=== PATIENT | female | born 1985 | race Caucasian/White ===

== ENCOUNTER 2018-04-20 13:39 | Emergency (ER) | payer MEDICAID ==
[~2018-04-20] VITALS: Ht 165.1 cm; Wt 72.6 kg
[2018-04-20 14:22] VITALS: BP 114/70
--- NOTE | 2018-04-20 14:30 | NUR ---
PT. CAME INTO THE ED DUE TO HEAVYNESS IN EYES AND LIGHT SENSITIVITY X 7DAYS AND BRYANT X 2 DAYS. PT. STATES " I FEEL REALLY DRY MY EYES AND THE LIGHTS HURT, I STARTED WITH A HEADACHEABOUT 2 DAYS AGO SO I DECIDED TO COME IN". PT. IS AAOX4, DENIES FEVER, DENIES N/V/D, DENIES SOB, DENIES CHEST PAIN. RR EVEN AND UNLABORED. DENIES ANY FALLS. PUPILS EQUAL ROUND AND REACTIVE TO LIGHT 3MM BILATERALLY. ER MD NOTIFIED. WILL CONTINUE TO MONITOR.
[2018-04-20 15:30] VITALS: BP 114/70
--- NOTE | 2018-04-20 15:30 | NUR ---
Patient discharged with v/s stable. Written and verbal after care instructions given and explained. Patient alert, oriented and verbalized understanding of instructions. Ambulatory with steady gait. All questions addressed prior to discharge. ID band removed. Patient advised to follow up with PMD. Rx of PREDNISONE, VOLTAREN, MOTRIN 800MG given. Patient educated on indication of medication including possible reaction and side effects. Opportunity to ask questions provided and answered.
== END 2018-04-20 15:30 | disposition home or self-care (01) ==
LOC: MED 13:39
DX: H20.9 Unspecified iridocyclitis (principal); G43.909 Migraine, unspecified, not intractable, without status migrainosus; Z91.041 Radiographic dye allergy status
CPT/HCPCS: 81025; 99283

== ENCOUNTER 2018-06-08 07:43 | Emergency (ER) | payer MEDICAID ==
[~2018-06-08] VITALS: Ht 165.1 cm; Wt 72.6 kg
[2018-06-08 07:52] VITALS: BP 110/59
--- NOTE | 2018-06-08 07:56 | NUR ---
PT AMBULATED TO ER BED 01
--- NOTE | 2018-06-08 08:00 | NUR ---
33/F PRESENT TO ER C/O ABDOMINAL CRAMPING x 3 DAYS. PT HAS NAUSEA AND VOMITING BUT DENIES DIARRHEA OR CONSTIPATION. PT DENIES INJURY OR TRAUMA. LMP: 04/30/2018. PT STATED 5 WKS.HX: ANEMIA.MEDS: IRON AND MOTRIN 800MG. SKIN IS PINK/WARM/DRY; AAOX4 WITH EVEN AND STEADY GAIT; LUNGS CLEAR BL; HR EVEN AND REGULAR; PT DENIES ANY FEVER, CP, SOB, OR COUGH AT THIS TIME; PATIENT STATES PAIN OF 6/10 AT THIS TIME; PATIENT POSITIONED FOR COMFORT; HOB ELEVATED; BEDRAILS UP X2; BED DOWN. ER MD MADE AWARE OF PT STATUS.
--- NOTE | 2018-06-08 08:16 | NUR ---
Patient being evaluated by DR ROTHMAN at bedside.
--- NOTE | 2018-06-08 08:25 | NUR ---
LAB AT BEDSIDE.
[2018-06-08 08:34] LABS: BASOPHILS % (AUTO) 0.1 % (0.0-2.0); EOSINOPHILS # (AUTO) 0.2 K/uL (0-0.4); EOSINOPHILS % (AUTO) 2.7 % (0.0-4.0); HEMATOCRIT 40.9 % (36-48); HEMOGLOBIN 13.9 g/dL (12.0-16.0); LYMPHOCYTES # (AUTO) 1.5 K/uL (2.5-16.5); LYMPHOCYTES % (AUTO) 18.1 % (20.5-51.1); MEAN CORPUSCULAR HEMOGLOBIN 31 pg (27-31); MEAN CORPUSCULAR HGB CONC 34 g/dL (33-37); MEAN CORPUSCULAR VOLUME 91.2 fL (80-94); MONOCYTES # (AUTO) 0.7 K/uL (0.8-1.0); MONOCYTES % (AUTO) 7.9 % (1.7-9.3); NEUTROPHILS # (AUTO) 6.1 K/uL (1.8-7.7); NEUTROPHILS % (AUTO) 71.2 % (42.2-75.2); PLATELET COUNT (AUTO) 165 K/uL (140-450); RED BLOOD CELL COUNT(AUTO) 4.48 MIL/uL (4.20-5.40); RED CELL DISTRIBUTION WIDTH 12.6 % (11.6-13.7); WHITE BLOOD COUNT (AUTO) 8.5 K/uL (4.8-10.8)
--- NOTE | 2018-06-08 09:33 | NUR ---
US AT BEDSIDE.
--- NOTE | 2018-06-08 10:39 | NUR ---
Patient being reevaluated by DR ROTHMAN at bedside.
[2018-06-08 10:50] VITALS: BP 106/60
--- NOTE | 2018-06-08 10:50 | NUR ---
Patient discharged with v/s stable. Written and verbal after care instructions given and explained. Patient verbalized understanding. Ambulatory with steady gait. All questions addressed prior to discharge. Advised to follow up with PMD.
== END 2018-06-08 10:50 | disposition home or self-care (01) ==
LOC: MED 07:43
DX: O26.891 Other specified pregnancy related conditions, first trimester (principal); R10.31 Right lower quadrant pain; R35.0 Frequency of micturition; Z86.2 Personal history of diseases of the blood and blood-forming organs and certain disorders involving the immune mechanism; Z91.041 Radiographic dye allergy status
CPT/HCPCS: 36415; 76817; 81002; 81025; 84702; 85025; 99285; Q0092

== ENCOUNTER 2018-12-28 16:18 | Observation (INO) | payer MEDICAID ==
[~2018-12-28] VITALS: Ht 165.1 cm; Wt 77.1 kg
[2018-12-28] MEDS ORDERED: RANI-745 PO (17:07)
[2018-12-28] MEDS ORDERED: METO-485 PO (17:07)
[2018-12-28] MEDS ORDERED: FERR-252 PO (17:07)
[2018-12-28] MEDS ORDERED: PREN-380 PO (17:07)
[2018-12-28] MEDS ORDERED: TRAM50TA1 PO (17:07)
[2018-12-28 17:10] VITALS: BP 109/67
[2018-12-28 18:05] LABS: BASOPHILS % (AUTO) 0.1 % (0.0-2.0); EOSINOPHILS # (AUTO) 0.1 K/uL (0-0.4); EOSINOPHILS % (AUTO) 0.8 % (0.0-4.0); HEMOGLOBIN 11.9 g/dL (12.0-16.0); LYMPHOCYTES # (AUTO) 1.2 K/uL (2.5-16.5); LYMPHOCYTES % (AUTO) 10.6 % (20.5-51.1); MEAN CORPUSCULAR HEMOGLOBIN 29 pg (27-31); MEAN CORPUSCULAR HGB CONC 33 g/dL (33-37); MEAN CORPUSCULAR VOLUME 87.3 fL (80-94); MONOCYTES # (AUTO) 0.8 K/uL (0.8-1.0); MONOCYTES % (AUTO) 6.9 % (1.7-9.3); NEUTROPHILS # (AUTO) 9.3 K/uL (1.8-7.7); NEUTROPHILS % (AUTO) 81.6 % (42.2-75.2); PLATELET COUNT (AUTO) 198 K/uL (140-450); RED BLOOD CELL COUNT(AUTO) 4.12 MIL/uL (4.20-5.40); RED CELL DISTRIBUTION WIDTH 13.3 % (11.6-13.7); WHITE BLOOD COUNT (AUTO) 11.4 K/uL (4.8-10.8)
[2018-12-28 18:23] LABS: PROTHROMBIN TIME 9.5 secs (10.8-13.4)
== END 2018-12-28 20:34 | disposition home or self-care (01) ==
LOC: MLD 16:18
PROVIDERS: ADMIT Obstetrics & Gynecology; ATTEND Obstetrics & Gynecology
DX: O26.893 Other specified pregnancy related conditions, third trimester (principal); R10.2 Pelvic and perineal pain; Z3A.35 35 weeks gestation of pregnancy
CPT/HCPCS: 36415; 76805; 81000; 85025; 85379; 85384; 85610; 85730; 86886; 86900; 86901; G0378; Q0092